=== PATIENT | female | born 2000 | race Caucasian/White ===

== ENCOUNTER 2021-09-21 19:55 | Emergency (ER) | payer BC, SELFPAY ==
[2021-09-21 19:57] VITALS: BP 125/70; PULSE 91; RESP 16; TEMP 36.4; O2SAT 97; BMI 20.1
--- NOTE | 2021-09-21 20:26 | [facility].EDURI ---
ED Disposition Clinical Impression: Uvulitis Disposition: Home, Self-Care Condition on Discharge: Good Instructions: DI for Uvulitis Additional Instructions: use meds and see pcp for follow up Prescriptions: cephALEXin [cephALEXin 500mg capsule*] 500 mg PO TID #30 capsule cephALEXin [cephALEXin 500mg capsule*] 500 mg PO TID #30 cap Transmission Status: Pending to [id number] predniSONE [Prednisone 20mg Tab] 20 mg PO BID #10 tab Transmission Status: Pending to [id number] predniSONE [Prednisone 20mg Tab] 20 mg PO BID #10 tab Referrals: Emilie Salinas MD [Primary Care Provider] - - Critical Care Critical Care Time: No Attestation: On 09/21/21, the high probability of a clinically significant, sudden or life threatening deterioration of the following system(s) required my full and direct attention, intervention and personal management. The time I documented below is in addition to time spent performing reported procedures but includes the following listed in this critical care notation. Medical Decision Making - Medical Records Medical records reviewed: Yes: I reviewed the patient's medical records. - [place] Inquiry Pt receiving controlled substance: No Vital Signs: 09/21/21 19:57 Temperature 97.6 F Temperature Source Oral Pulse Rate [Right Radial] 91 H Respiratory Rate 16 Blood Pressure [Right Arm] 125/70 Blood Pressure Mean [Right Arm] 88 Blood Pressure Source [Right Arm] Automatic Cuff Blood Pressure Position [Right Arm] Sitting 02 Sat by Pulse Oximetry 97 Oxygen Delivery Method Room Air - Lab Data Lab results reviewed: Yes: I reviewed the patient's lab results. Lab Results 09/21/21 20:07: WBC 8.5, RBC 5.26, Hgb 15.9, Hct 47.8 H, MCV 90.8, MCH 30.2, MCHC 33.2, RDW 12.5, Plt Count 338, MPV 7.5, Neut % (Auto) 60.4, Lymph % (Auto) 30.5, [place] % (Auto) 5.4, Eos % (Auto) 2.9, Baso % (Auto) 0.8, Neut # (Auto) 5.1, Lymph # (Auto) 2.6, [place] # (Auto) 0.5, Eos # (Auto) 0.3, Baso # (Auto) 0.1 09/21/21 20:12: Group A Strep Rapid Negative Result diagrams: 09/21/21 20:07 Orders (Tests/Meds): ED MEDICATIONS Generic Name Dose Route Start Last Admin Trade Name Freq PRN Reason Stop Dose Admin Ceftriaxone Sodium 1 gm/ 50 mls @ 100 mls/hr 09/21/21 20:30 Sodium Chloride IV 10/05/21 20:29 [id number] Discontinued Medications Generic Name Dose Route Start Last Admin Trade Name Freq PRN Reason Stop Dose Admin Ketorolac Tromethamine 30 mg 09/21/21 20:17 Ketorolac 30mg/Ml Vial IV 09/21/21 20:18 ONCE ONE Methylprednisolone Sodium Succinate 125 mg 09/21/21 20:17 Methylprednisolone Sod Succ 125mg Vial IV 09/21/21 20:18 ONCE ONE ORDERS Category Date Time Status Basic Metabolic Panel Stat Lab 09/21/21 20:07 Received Serum [HCG Qualitative, Serum] Stat Lab 09/21/21 20:07 Received Strep Screen Confirmation Stat Micro 09/21/21 20:12 Received Medical Decision Narrative: has acute uvulitis and will trial of meds at [facility] URI/Sore Throat HPI - General Chief Complaint: Upper Respiratory Infection Stated Complaint: feels like something stuck in throat Time Seen by Provider: 09/21/21 20:05 Mode of Arrival: Ambulatory Source of Information: Patient, Medical Record Limitations: No Limitations Description of Symptoms (Recalled from ER Triage Doc. by RN): Pt reports a few days of feeling like something is stuck in her throat. She denies difficulty swallowing. Airway is patent. She denies cough, sore throat, fevers. - History of Present Illness HPI Narrative: feeling od something in throat over the last few days w/o fever or sore throat and no airway c/o and no vomiting - no new meds Complaint: other (swollen throat ) Onset (ago): day(s) Duration: constant Severity: moderate Able to tolerate fluids by mouth: Yes Associated symptoms: denies other symptoms Treatments prior to arrival: none - Related Data Prev
[2021-09-21 20:35] LABS: Basophils # 0.1 K/mm3 (0-0.2); Basophils % 0.8 % (0.1-2.0); Eosinophils # 0.3 K/mm3 (0.0-0.4); Eosinophils % 2.9 % (0.1-12.0); Hematocrit 47.8 % (37.0-47.0); Hemoglobin 15.9 g/dL (12.2-16.2); Lymphocytes # 2.6 K/mm3 (0.7-4.5); Lymphocytes % 30.5 % (10-50); Mean Corpuscular HGB Conc 33.2 g/dL (31.8-35.4); Mean Corpuscular Hemoglobin 30.2 pg (27.0-31.2); Mean Corpuscular Volume 90.8 fl (81-99); Mean Platelet Volume 7.5 fl (7.4-10.4); Monocytes # 0.5 K/mm3 (0.1-1.0); Monocytes % 5.4 % (1.7-9.3); Neutrophils # 5.1 K/mm3 (1.8-7.8); Neutrophils % 60.4 % (37.0-80.0); Platelet Count 338 K/mm3 (142-424); Red Blood Count 5.26 M/mm3 (4.20-5.40); Red Cell Distribution Width 12.5 % (11.5-17.5); White Blood Count 8.5 K/mm3 (4.8-10.8)
[2021-09-21 20:37] LABS: Strep Scrn Group A (Rapid) Negative (Negative)
[2021-09-21 20:50] LABS: Anion Gap 11.2 mEq/L (5-15); Blood Urea Nitrogen 14 mg/dl (7-17); Calcium 9.4 mg/dl (8.4-10.2); Carbon Dioxide 29 mmol/L (22.0-30.0); Chloride 103 mmol/L (98-107); Creatinine Clearance Estimated 115 mL/min (50-200); Estimated Glomerular Filt Rate 124 ml/min (>60); GFR (African American) 150 ML/MIN (>60); Glucose 120 mg/dl (74-100); Potassium 4.2 mmoL/L (3.5-5.1); Sodium 139 mmol/L (136-145)
[2021-09-21 20:51] LABS: HCG Qualitative, Serum Negative (Negative)
[2021-09-21 21:04] VITALS: BP 103/58; PULSE 100; O2SAT 99
[2021-09-21 21:25] VITALS: BP 103/58; PULSE 89; RESP 16; TEMP 36.6; O2SAT 97
== END 2021-09-21 21:25 | disposition home or self-care (01) ==
PROVIDERS: Emergency Provider Emergency Medicine; PCP Family Medicine
DX: K12.2 Cellulitis and abscess of mouth (principal); J06.9 Acute upper respiratory infection, unspecified
CPT/HCPCS: 80048; 84703; 85025; 87430; 96374; 96375; 99282; J0696